=== PATIENT | female | born 1955 | race African-American/Black ===

== ENCOUNTER 2019-05-30 11:39 | Observation (INO) ==
[2019-05-30] MEDS ORDERED: DEXTROSE 50% 25 GM/50 ML VIAL IV PRN (13:16)
[2019-05-30] MEDS ORDERED: GLUCAGON 1 MG VIAL IM PRN (13:16)
[2019-05-30] MEDS ORDERED: ACETAMINOPHEN 325 MG TABLET PO PRN (13:18)
[2019-05-30] MEDS ORDERED: POTASSIUM CHLORIDE RIDER 10 MEQ in PREMIX 1 EACH IV PRN (13:18)
[2019-05-30] MEDS ORDERED: MAGNESIUM SULF RIDER 2 GM in PREMIX 1 EACH IV PRN (13:18)
[2019-05-30] MEDS ORDERED: MAGNESIUM SULF RIDER 4 GM in PREMIX 1 EACH IV PRN (13:18)
[2019-05-30] MEDS ORDERED: ONDANSETRON 4 MG/2 ML VIAL IV PRN (13:18)
[2019-05-30] MEDS: SODIUM CHLORIDE 0.9% 1,000 ML IV SCH ×2 (13:48→22:58)
[2019-05-30 14:00] LABS: Basophils # 0.1 10*3/uL (0.0-0.2); Basophils % 0.7 % (0.0-0.8); Eosinophils # 0.5 10*3/uL (0.0-0.87); Eosinophils % 5.7 % (0.00-10.9); Hematocrit 34.9 VOL% (35.7-47.0); Hemoglobin 12.2 GM/DL (12.0-16.0); Immature Granulocytes % 0.4 %; Immature Granulocytes Absolute 0.03 #; Lymphocytes # 1.7 10*3/uL (1.4-4.0); Lymphocytes % 21.1 % (21.3-54.2); Mean Corpuscular Volume 85.7 FL (87-102); Mean Platelet Volume 9.8 FL (9.6-12.0); Monocytes % 8.4 % (1.7-12.7); Neutrophils % 63.7 % (38.7-73.9); Platelet Count 201 T/CUMM (130-400); Red Blood Count 4.07 MC/CUMM (3.8-5.5); Red Cell Distribution Width 12.7 % (9.3-17.3); White Blood Count 8.1 T/CUMM (4-12)
[2019-05-30 14:40] LABS: Apearance,Urine CLEAR (Clear); Bilirubin,Urine Negative (Negative); Blood, Urine Negative (Negative); Glucose,Urine (UA) 50 mg/dL (Negative); Ketones,Urine Negative (Negative); Nitrite,Urine Negative (Negative); Protein,Urine Negative; RBC,Urine <1 /HPF (0-4); Squamous Epithelial Cell,Urine Occasional /HPF (0-10); Urine Color Colorless (Yellow); Urine Specific Gravity 1.002 (1.001-1.035); Urine Urobilinogen < 2.0 EU/DL (0.2-1.0); WBC,Urine <1 /HPF (0-6)
[2019-05-30] MEDS: INSULIN LISPRO 100 UNIT/ML SUBCUT SCH ×2 (16:08→20:53)
[2019-05-30] MEDS ORDERED: hydrALAZINE 20 MG/1 ML VIAL IV PRN (16:31)
[2019-05-30 17:16] LABS: Albumin 3.1 G/DL (3.4-5.0); Osmolality,Calculated 247.5 MOS/KG (273-304)
[2019-05-30 17:21] LABS: Bilirubin,Total 0.7 MG/DL (0.2-1.0); Total Protein 7.7 G/DL (6.4-8.3)
[2019-05-30] MEDS: DOCUSATE SODIUM 100 MG CAPSULE PO SCH (20:53)
[2019-05-30] MEDS: busPIRone 10 MG TABLET PO SCH (20:53)
[2019-05-30] MEDS: MAGNESIUM OXIDE 400 MG TABLET PO SCH (20:53)
[2019-05-31 06:01] LABS: Calcium 8.3 MG/DL (8.5-10.1); Osmolality,Calculated 261.5 MOS/KG (273-304)
[2019-05-31] MEDS: SODIUM CHLORIDE 0.9% 1,000 ML IV SCH (07:16)
[2019-05-31] MEDS: INSULIN LISPRO 100 UNIT/ML SUBCUT SCH ×2 (08:04→13:13)
[2019-05-31] MEDS ORDERED: LOSARTAN 50 MG TABLET PO SCH (09:00)
[2019-05-31] MEDS ORDERED: amLODIPine 5 MG TABLET PO SCH (09:00)
[2019-05-31] MEDS ORDERED: PANTOPRAZOLE 40 MG TABLET PO SCH ×2 (09:00)
[2019-05-31] MEDS ORDERED: POTASSIUM CHLORIDE 10 MEQ TABLET PO SCH (09:00)
[2019-05-31] MEDS ORDERED: CITALOPRAM 20 MG TABLET PO SCH (09:00)
[2019-05-31] MEDS: busPIRone 10 MG TABLET PO SCH (09:19)
[2019-05-31] MEDS: DOCUSATE SODIUM 100 MG CAPSULE PO SCH (09:20)
[2019-05-31] MEDS: MAGNESIUM OXIDE 400 MG TABLET PO SCH (09:20)
[2019-05-31 13:10] VITALS: BP 159/58
== END 2019-05-31 14:00 | disposition home or self-care (01) ==
LOC: N.2W
PROVIDERS: ADMIT Family Medicine; ATTEND Family Medicine